=== PATIENT | female | born 1945 | race Caucasian/White ===

== ENCOUNTER → 2020-05-06 | Outpatient (CLI) | payer MEDICARE, OTHER ==
[~2020-05-06] MED LIST: ACETAMINOPHEN-1 EAC1 PO; ADULT LOW DOSE81 MG PO; BENADRYL25 MG PO; CALCIUM POLYCA625 MG PO; CARVEDILOL6.25 MG PO; CENTRUM COMPLE1 EACH PO; CIPROFLOXACIN500 M1 PO; CLONAZEPAM0.125 MG PO; EFFEXOR XR PO; EFFEXOR XR75 MG PO; HYDROCODONE-AP1 EAC6 PO; LIDODERM 5%1 PATC1; LOPRESSOR 12.12.5 MG PO; MULTIVITAMINS PO; NITROFURANTOIN25 MG PO; ONDANSETRON HCL4 M2 PO; VITAMIN D3400 UNIT PO; VITAMIN D400 UNI1 PO; XANAX 0.25 MG0.25 MG PO; ZOCOR PO; ZOCOR40 MG PO
== END ==
LOC: M.CT 04-25 08:56
PROVIDERS: ATTEND Registered Nurse Diabetes Educator
DX: R41.3 Other amnesia (principal); R51 Headache; R63.4 Abnormal weight loss

== ENCOUNTER → 2020-06-08 | Outpatient (CLI) | payer MEDICARE, OTHER | LOC: M.RAD 08:20 | PROVIDERS: ATTEND Registered Nurse Diabetes Educator | DX: M81.0 Age-related osteoporosis without current pathological fracture (principal); Z78.0 Asymptomatic menopausal state ==